=== PATIENT | male | born 1990 | race Caucasian/White ===

== ENCOUNTER 2018-11-28 17:34 | Emergency (ER) | payer OTHER ==
[~2018-11-28] VITALS: Wt 88.0 kg
[2018-11-28 17:41] VITALS: BP 136/72; PULSE 100
[2018-11-28] MEDS ORDERED: KETOROLAC 60 MG INJ IM STA (22:25)
[2018-11-28] MEDS ORDERED: ONDANSETRON (ODT) 4 MG TAB ODT STA (23:13)
[2018-11-28] MEDS ORDERED: IBUP-1542 PO (23:27)
[2018-11-28 23:41] VITALS: RESP 18
--- NOTE | 2018-11-29 02:13 | ERD ---
ER Documentation Chief Complaint Chief Complaint RIGHT SIDE FLANK AND ABD PAIN SINCE YESTERDAY GETTING WORSE TODAY . HPI 28-year-old male patient with no significant past medical history presents to ED complaining of right lower back pain, mid substernal chest/epigastric pain that started yesterday, however presented to the ED because he feels worse today. Denies any nausea, vomiting, diarrhea, constipation, cough, neck stiffness. Rates his pain is a 10 out of 10. States that when he breathes, it feels like needles in his chest. Denies any cough, rhinorrhea, fever, chills, dysuria, hemoptysis, leg swelling. Denies any recent traveling. Denies being less mobile - states that he has been more mobile and active than usual. Denies any sick contacts. Denies any injuries or trauma. ROS All systems reviewed and are negative except as per history of present illness. Medications Home Meds Active Scripts Ibuprofen* (Motrin*) 600 Mg Tab, 600 MG PO Q6, #30 TAB Prov:KOLTON CHAPIN PA-C 11/28/18 Allergies Allergies: Coded Allergies: No Known Allergy (Unverified , 11/28/18) PMhx/Soc Medical and Surgical Hx: pt denies Medical Hx, pt denies Surgical Hx Hx Alcohol Use: No Hx Substance Use: No Hx Tobacco Use: No Smoking Status: Never smoker FmHx Family History: No diabetes, No coronary disease Physical Exam Vitals Vital Signs Date Temp Pulse Resp B/P (MAP) Pulse Ox O2 O2 Flow FiO2 Time Delivery Rate 11/28/18 18 98 Room Air 23:41 11/28/18 99.0 100 20 136/72 98 17:41 (93) Physical Exam Const: Kjy-igb-qdjyuejai, well-nourished. In no acute distress. Head: Atraumatic, normocephalic Eyes: Normal Conjunctiva without injection. No purulent discharge. PERRL. EOMI ENT: Normal external ear. Ear canal without erythema. Tympanic membrane pearly rothman without effusion or bulging. Nasal canal clear with normal turbinates. Moist oropharynx without tonsillar exudates. Non-erythematous pharynx. Uvula midline. No drooling. No trismus. Neck: Full range of motion. No meningismus. No cervical lymphadenopathy. Resp: Clear to auscultation bilaterally. No wheezing, rhonchi, rales, or crackles. No accessory muscle use. No retractions. Cardio: Regular rate and rhythm. No murmurs, rubs or gallops. Abd: Soft, non tender, non distended. Normal bowel sounds. No palpable masses. No rebound tenderness. No guarding. Skin: No petechiae or rashes Back: No midline tenderness. No CVA tenderness. Ext: No cyanosis, or edema. Neur: Awake and alert. Psych: Normal Mood and Affect Results 24 hrs Laboratory Tests Test 11/28/18 18:19 White Blood Count 11.3 10^3/ul Red Blood Count 5.03 10^6/ul Hemoglobin 13.7 g/dl Hematocrit 42.4 % Mean Corpuscular Volume 84.3 fl Mean Corpuscular Hemoglobin 27.2 pg Mean Corpuscular Hemoglobin Concent 32.3 g/dl Red Cell Distribution Width 13.1 % Platelet Count 314 10^3/UL Mean Platelet Volume 10.1 fl Immature Granulocytes % 0.400 % Neutrophils % 76.8 % Lymphocytes % 12.1 % Monocytes % 9.7 % Eosinophils % 0.4 % Basophils % 0.6 % Nucleated Red Blood Cells % 0.0 /100WBC Immature Granulocytes # 0.050 10^3/ul Neutrophils # 8.7 10^3/ul Lymphocytes # 1.4 10^3/ul Monocytes # 1.1 10^3/ul Eosinophils # 0.1 10^3/ul Basophils # 0.1 10^3/ul Nucleated Red Blood Cells # 0.0 10^3/ul Urine Color YELLOW Urine Clarity SLIGHTLY CLOUDY Urine pH 5.0 Urine Specific [place] 1.020 Urine Ketones NEGATIVE mg/dL Urine Nitrite NEGATIVE mg/dL Urine Bilirubin NEGATIVE mg/dL Urine Urobilinogen NEGATIVE mg/dL Urine Leukocyte Esterase NEGATIVE Oren/ul Urine Microscopic RBC 1 /HPF Urine Microscopic WBC 1 /HPF Urine Mucus MANY /HPF Urine Hemoglobin 1+ mg/dL Urine Glucose NEGATIVE mg/dL Urine Total Protein NEGATIVE mg/dl Sodium Level 141 mmol/L Potassium Level 4.2 mmol/L Chloride Level 101 mmol/L Carbon Dioxide Level 26 mmol/L Anion Gap 14 Blood Urea Nitrogen 9 mg/dl Creatinine 0.82 mg/dl Est Glomerular Filtrat Rate mL/min > 60 mL/min Glucose Level 116 mg/dl Calcium Level 10.2 mg/dl Total Bilirubin 0.6 mg/dl Direct Bilirubin 0.00 mg/dl Indirect Bilirubin 0.6 mg/dl Aspartate Amino Transf (AST/SGOT) 60 IU/L Alanine Aminotransferase (ALT/SGPT) 115 IU/L Alkaline Phosphatase 93 IU/L Total Protein 8.7 g/dl Albumin 5.0 g/dl Globulin 3.70 g/dl Albumin/Globulin Ratio 1.35 Lipase 40 U/L Current Medications Medications Dose Sig/Patricia Start Time Status Last (Trade) Ordered Route PRN Stop Time Admin Dose Reason Admin Ketorolac 60 mg ONCE STAT 11/28/18 DC 11/28/18 Tromethamine IM 22:25 22:52 (Toradol) 11/28/18 22:26 Ondansetron 4 mg ONCE STAT 11/28/18 DC 11/28/18 HCl (Zofran ODT 23:13 23:18 Odt) 11/28/18 23:14 Procedures/MDM 28-year-old male patient with no significant past medical history presents to ED complaining of right upper back pain. Patient is afebrile and nontoxic- appearing. Patient was further worked up with CBC, CMP, lipase, UA, urine, EKG, CT of the abdomen and pelvis without contrast. CBC: No leukocytosis. No e/o of systemic infection. No e/o anemia. CMP: No e/o severe acidosis, alkalosis, renal failure, diabetic ketoacidosis, slightly elevated liver enzymes Lipase within normal limits. Urine: No leukocyte esterase, no nitrites, 1+ hematuria. EKG reviewed and interpreted by Dr. Post Rate/Rhythm: [73 bpm, Normal Sinus Rhythm] No ectopy, no ST elevations, normal axis. QRS, ST, T-waves: [No changes consistent w/ acute ischemia] Impression: [No evidence of ischemia or arrhythmia] IMPRESSION: 1. Air space opacification is seen within the right posterior sulcus superior to which there is mild posterior right lower pleural thickening. Discoid atelectasis is seen in the left posterior sulcus. No effusion or pneumothorax is identified. 2. Mild hepatomegaly with no focal lesion. 3. Otherwise, unremarkable non-enhanced CT scan of the abdomen and pelvis. IMPRESSION: No acute disease. Patient reports pain has slightly improved after treatment with Toradol 60 mg IM. Atelectasis found on CT - instructed patient to take full breaths to help resolution of atelectasis. Spirometry offered to patient and mother however denied wanting spirometry. Discussed findings with Dr. Lorenzo, stated patient can be managed on an outpatient basis. 0 points for wells criteria - no clinical signs/symptoms of DVT, PE unlikely, no immobilization, heart rate not > 100, no hemoptysis, no diagnosis of malignancy, no hx of PE/DVT. Perc negative. Low suspicion for acute myocardial infarction, pneumothorax, pneumonia, cardiac tamponade, Okwvc-Eamqzbxfp-Vklyy Syndrome, Brugada Syndrome, pulmonary embolism, AAA, aortic dissection, thoracic aortic dissection, endocarditis, myocarditis, pericarditis, cocaine-related ischemia, Boerhaave's syndrome, cardiac dysrhythmias,meningitis, intracranial bleed, seizure, stroke, TIA or other emergent conditions. 1+ hematuria noted however no nephrolithiasis noted on CT. Mild transaminitis noted likely secondary to hepatomegaly noted. Low suspicion for testicular torsion, gastritis, GERD, peptic ulcer disease, cholecystitis, choledocholithiasis, cholangitis, pancreatitis, appendicitis, bowel obstruction, ileus, volvulus, nephrolithiasis, pyelonephritis, hepatitis, perforated viscus, diverticulitis, abdominal hernia, acute abdomen, mesenteric ischemia or other emergent conditions. Diagnosis: Atelectasis Discharge medications: Ibuprofen Follow up with primary care physician in 1-2 days. Instructed patient to return to the ED sooner for any worsening symptoms - worsening shortness of breath, fever, worsening pain, vomiting. Patient's questions were answered. Patient unde rstood and agreed with discharge plan. Patient discharged stable. Departure Diagnosis: Primary Impression: Atelectasis Condition: Stable Patient Instructions: Atelectasis Referrals: [facility] YOU HAVE RECEIVED A MEDICAL SCREENING EXAM AND THE RESULTS INDICATE THAT YOU DO NOT HAVE A CONDITION THAT REQUIRES URGENT TREATMENT IN THE EMERGENCY DEPARTMENT. FURTHER EVALUATION AND TREATMENT OF YOUR CONDITION CAN WAIT UNTIL YOU ARE SEEN IN YOUR DOCTORS OFFICE WITHIN THE NEXT 1-2 DAYS. IT IS YOUR RESPONSIBILITY TO MAKE AN APPOINTMENT FOR FOLOW-UP CARE. IF YOU HAVE A PRIMARY DOCTOR --you should call your primary doctor and schedule an appointment IF YOU DO NOT HAVE A PRIMARY DOCTOR YOU CAN CALL OUR PHYSICIAN REFERRAL HOTLINE AT IF YOU CAN NOT AFFORD TO SEE A PHYSICIAN YOU CAN CHOSE FROM THE FOLLOWING [facility] [address] [facility]. [facility] [address] [facility] [address] [facility] [address] [facility] [address] [facility]. [facility] [address] [facility]. [facility] YOU HAVE RECEIVED A MEDICAL SCREENING EXAM AND THE RESULTS INDICATE THAT YOU DO NOT HAVE A CONDITION THAT REQUIRES URGENT TREATMENT IN THE EMERGENCY DEPARTMENT. FURTHER EVALUATION AND TREATMENT OF YOUR CONDITION CAN WAIT UNTIL YOU ARE SEEN IN YOUR DOCTORS OFFICE WITHIN THE NEXT 1-2 DAYS. IT IS YOUR RESPONSIBILITY TO MAKE AN APPOINTMENT FOR FOLOW-UP CARE. IF YOU HAVE A PRIMARY DOCTOR --you should call your primary doctor and schedule and appointment IF YOU DO NOT HAVE A PRIMARY DOCTOR YOU CAN CALL OUR PHYSICIAN REFERRAL HOTLINE AT . IF YOU CAN NOT AFFORD TO SEE A PHYSICIAN YOU CAN CHOSE FROM THE FOLLOWING [facility] INSTITUTIONS: [facility] [address] [place] [address] [facility] [address] [place] [address] [facility] [address] [place] [address] [facility] URGENT CARE/SPECIALTIES Additional Instructions: Call your primary care doctor TOMORROW for an appointment during the next 2-3 days.See the doctor sooner or return here if your condition worsens before your appointment time - worsening symptoms, abdominal pain, fever, chest pain. KOLTON CHAPIN PA-C Nov 29, 2018 02:13
== END 2018-11-28 23:42 | disposition home or self-care (01) ==
LOC: FTE 17:34
DX: J98.11 Atelectasis (principal); R07.2 Precordial pain
CPT/HCPCS: 36415; 71045; 74176; 80053; 81001; 83690; 85025; 93005; 96372; 99285; J1885